=== PATIENT | male | born 1995 | race Caucasian/White ===

== ENCOUNTER → 2020-11-29 09:09 | Outpatient (BNVA) | payer BC, SELFPAY | PROVIDERS: Referring Provider Family Medicine; Visit Provider Orthopaedic Surgery | DX: S82.842A Displaced bimalleolar fracture of left lower leg, initial encounter for closed fracture (principal); X58.XXXA Exposure to other specified factors, initial encounter | CPT/HCPCS: 73600 ==

== ENCOUNTER 2020-11-29 13:26 | Outpatient (CLI) | payer BC, SELFPAY | END 2020-11-29 13:27 | disposition home or self-care (01) | LOC: SPT 13:26 | PROVIDERS: Visit Provider Orthopaedic Surgery | DX: Z46.89 Encounter for fitting and adjustment of other specified devices (principal); S82.842D Displaced bimalleolar fracture of left lower leg, subsequent encounter for closed fracture with routine healing; X58.XXXD Exposure to other specified factors, subsequent encounter | CPT/HCPCS: 97760; L4361 ==

== ENCOUNTER → 2020-12-01 10:27 | Outpatient (BNVA) | payer BC, SELFPAY | PROVIDERS: Visit Provider Orthopaedic Surgery | DX: Z20.828 Contact with and (suspected) exposure to other viral communicable diseases (principal); Z01.812 Encounter for preprocedural laboratory examination | CPT/HCPCS: 87635 ==

== ENCOUNTER 2020-12-07 08:14 | Day surgery (SDC) | payer BC, SELFPAY ==
[2020-12-06 17:35] VITALS: BMI 35.0
[2020-12-07] VITALS (11 sets, daily range): BP systolic 102–137; BP diastolic 60–90; PULSE 65–87; RESP 16–20; TEMP 36.3–36.7; O2SAT 95–100
--- NOTE | 2020-12-07 | XR_ITS ---
WS: [id number] Left ankle, C-arm fluoroscopy views in the OR, 12/07/2020 Clinical Data: ORIF LEFT LATERAL MALLEOLUS FRACTURE Comparison: Left ankle, 11/29/2020 Findings: There is a lateral plate of the distal left fibula fixed with multiple orthopedic screws reducing the distal left fibular fracture. There is a tunnel extending from the left fibula to the surface of the medial distal left tibia in which a device is reducing the medial displacement of the left ankle. XR/XR ankle LT 2V [id number] Impression: 1. Internal fixation of distal left fibular fracture. 2. Reduction of widening of the medial left ankle joint.
--- NOTE | 2020-12-07 | SCC_ITS ---
Procedure Done: Open reduction and internal fixation left lateral malleolus, open reduction internal fixation left syndesmosis 38.5 seconds of fluoroscopic guidance, for a cumulative dose of 1.04 mGy, was provided to Dr. Solorio by the radiology department. C-arm images of the LEFT ankle were saved for the patient's permanent record. [facility]
--- NOTE | 2020-12-07 07:03 | W.PM.OPSUD ---
Surgery/Procedure H&P Update DATE OF PROCEDURE: December 07, 2020 DATE H&P PERFORMED: 11/29/20 PLANNED PROCEDURE: Operation Date: 12/07/20 09:50 Proposed Procedures p ORIF left lateral malleolus fracture w/poss syndesmotic fixation [id number] S85.62xa(Left) - Dominik Solorio MD
--- NOTE | 2020-12-07 09:03 | ANES.PREANE2 ---
Pre-Anesthetic Assessment Pre-Anesthetic Assessment: Height/Weight: Height 1.7 m Weight 101.605 kg Temp Pulse Resp BP Pulse Ox 98.0 F 86 18 137/83 96 12/07/20 09:02 12/07/20 09:02 12/07/20 09:02 12/07/20 09:02 12/07/20 09:02 Preop Diagnosis: Fracture left ankle lateral malleolus, possible syndesmotic disruption Proposed Procedure: Operation Date: 12/07/20 09:50 Proposed Procedures p ORIF left lateral malleolus fracture w/poss syndesmotic fixation [id number] S85.62xa(Left) - Dominik Solorio MD Was Beta Angelica taken within 24 hours: N/A Social: Social History: Tobacco and No alcohol Exam: Pre-Anes Outpt Exam: alert, oriented x 3, clear to auscultation bilaterally and regular rate & rhythm Airway: Submandibular: WNL Cervical ROM: WNL MP: 2 Dentition: Full History/ROS: No significant history except as noted Metabolic: Metabolic: Morbid obesity Neuropsych: Comments: Narcotic program Anesthetic Plan: ASA status: 2 Anesthesia: Regional (specify below) Other: SAB with Popliteal blk Risk of > 500 ml blood loss (7ml/kg in children): No Data Anesthesia Cardiac Studies: No Data to Display
[2020-12-07] MEDS: sodium chloride 0.9% 1,000 ML 30 ML IV (09:07)
[2020-12-07] MEDS: midazolam 1 mg/mL INJ 2 mL 2 MG IVP (09:32)
--- NOTE | 2020-12-07 09:50 | ANES.PROC ---
Anesthesia Procedures Procedure/Date: 12/07/20 Nerve Block ^: Nerve Block 1: Main Anesthesia: spinal anesthesia block Time Out Performed: Yes Consent: requested by attending/covering physician, from patient, risks and benefits reviewed and patient agrees to proceed Nerve block location: popliteal Anesthesia monitors applied: pulse oximetry, EKG, BP cuff and oxygen Nerve block position: other (prone) Anesthetic Used: ropivicaine 0.5% and with epi Amount of anesthesia used (mL): 30 Ultrasound used to: recognize landmarks Nerve Stimulator Used?: No Interscalene/Femoral BLK: 4 stimuplex 21 g needle used for position and inplane approach, visualize local anesthetic spread and no vascular puncture identified Injection: neg aspiration of heme Patient Tolerated Procedure: well Complications: none
--- NOTE | 2020-12-07 11:25 | PM.OP ---
Operative Report Date of procedure: December 07, 2020 Pre-op Diagnosis: Fracture left ankle lateral malleolus, possible syndesmotic disruption Post-op diagnosis: same Post-op Findings: Lateral malleolus fracture with syndesmotic disruption Procedure Done: Open reduction and internal fixation left lateral malleolus, open reduction internal fixation left syndesmosis Implants: Tom Variax 8 hole compression plaste, Arthrex Tightrope syndsmotic fixation Pathology: none sent Surgeon: Dominik Soloroi Anesthesia: Nerve Block (Spinal) Estimated blood loss (mL): 20 Tourniquet time (min): 47 Findings: The patient had a displaced oblique fracture of his distal fibular shaft with lateral instability of the talus in the mortise, and widening of the distal syndesmosis Condition: stable Disposition: PACU Procedure: The patient was taken to the operating room and given 2 g of Ancef. He is prepped and draped in the supine position with the left ankle exposed. Toes were covered with a surgical glove and Ioband. Tourniquet was inflated to 300 mmHg. An 8 mm incision was made from the distal fibula proximally along the shaft dissection was carried down full-thickness to the lateral fibula. The fracture site was cleaned with a curette and reduced with a clamp. It was fixed with 2 anterior to posterior 3.5 millimeters screws in compression mode. An 8 hole plate was placed over the fracture. It was fixed proximally with 3 screws and distally with 2 additional screws. The second hole from the hand was left open for the syndesmotic fixation. A full-thickness flap was carried up anteriorly over the distal fibula revealing the anterior tib-fib syndesmosis. Across the open screw hole in the plate and the guidepin was passed in a tunnel created across the fibula, tibia and exiting just beneath the subcutaneous tissues on the medial ankle. The tight rope fixation was passed and secured with direct visualization of the syndesmosis verifying an anatomic reduction. Intraoperative images verified the talus aligned in the mortise and the fibula anatomically aligned out to length. Wounds were irrigated with saline. Deep tissues were closed with 0 Vicryl in subcutaneous tissues with 2-0 Vicryl. The skin was closed with skin gustavo. Xeroflo gauze sterile 4 x 4's, web roll and a compressive Andrés wrap were applied. The patient was placed back in his boot, extubated, and taken to recovery room in stable condition.
--- NOTE | 2020-12-07 12:03 | SUR.PHASEI ---
1153 PT AWAKE ALERT TALKATIVE PT STATES NORMAL SENSATION TO T-12 LEVEL, DRESSING AND BOOT TO LT LOWER LEG AND FOOT D/I DISTAL TOES PINK WARM WITH CAP REFILL LESS THAN 3 SECONDS.
--- NOTE | 2020-12-07 12:25 | ANE.PACU2 ---
Inpatient post-anesthesia follow up: Airway intact: Yes Vital signs: Temperature 97.5 F Pulse Rate 67 Respiratory Rate 18 Blood Pressure 124/84 Pulse Oximetry 98 Oxygen Delivery Me thod Room Air Oxygen Flow Rate 8 Fraction of Inspir ed Oxygen Hydration adequate: Yes Nausea and vomiting: No Pain level: 1 Mental status: Baseline
--- NOTE | 2020-12-07 13:24 | SUR.PHASEII ---
1324 Spinal block at level S1. Pt able to move foot, leg, and bend knees. Dressing to left lower extremity D/I with no swelling noted. CAM walker boot in place to left lower extremity. Pain medication delivered to patient from [facility] outpatient pharmacy. Discharge instructions given to patient and friend.
--- NOTE | 2020-12-07 14:04 | SUR.PHASEII ---
1404 Pt able to wiggle toes and states most feeling is back in the right lower extremity. Pt unable to urinate at this time. Pt has had a significant amount of apple juice and coke with no results. Pt denies pain or feeling of need to urinate. Will continue to monitor.
--- NOTE | 2020-12-07 14:49 | SUR.PHASEII ---
1445 Pt able to void 200 mL clear yellow urine. Able to bear weight on right foot. Pt instructed of strict non-weight bearing status to left lower extremity. Pt dressed with help of friend and assisted to wheelchair. Able to pivot turn without difficulty. Pt off unit via wheelchair to be taken home by friend.
== END 2020-12-07 14:49 | disposition home or self-care (01) ==
PROVIDERS: Visit Provider Orthopaedic Surgery
PROC: (CPT 27792; principal; 2020-12-07 09:50)
DX: S82.62XA Displaced fracture of lateral malleolus of left fibula, initial encounter for closed fracture (principal); W01.198A Fall on same level from slipping, tripping and stumbling with subsequent striking against other object, initial encounter; E66.01 Morbid (severe) obesity due to excess calories; Z68.35 Body mass index [BMI] 35.0-35.9, adult
CPT/HCPCS: 27792; 27829; 12345; 51702; 64450; 73600; 76000; 96374; C1713; J0171; J0690; J1580; J1885; J2250; J2405; J2704; J2795; J3490; J7030

== ENCOUNTER → 2021-01-16 09:51 | Outpatient (BNVA) | payer BC, SELFPAY | PROVIDERS: Visit Provider Orthopaedic Surgery | DX: Z48.89 Encounter for other specified surgical aftercare (principal); S82.62XA Displaced fracture of lateral malleolus of left fibula, initial encounter for closed fracture; X58.XXXA Exposure to other specified factors, initial encounter | CPT/HCPCS: 73610 ==

== ENCOUNTER → 2021-02-06 09:34 | Outpatient (BNVA) | payer BC, SELFPAY | PROVIDERS: Visit Provider Orthopaedic Surgery | DX: Z48.89 Encounter for other specified surgical aftercare (principal); S82.62XA Displaced fracture of lateral malleolus of left fibula, initial encounter for closed fracture; X58.XXXA Exposure to other specified factors, initial encounter | CPT/HCPCS: 73610 ==